=== PATIENT | female | born 1990 | race American Indian/Alaskan Native ===

== ENCOUNTER 2016-09-09 15:12 | Emergency (ER) | payer MEDICAID ==
[2016-09-09] MEDS ORDERED: ZOFRAN ODT PO ONE (18:06)
[2016-09-09] MEDS ORDERED: PHENERGAN/CODEINE 6.25-10 MG/5ML PO ONE (18:07)
--- NOTE | 2016-09-09 18:33 | XRay Report ---
FINAL REPORT PROCEDURE: XR CHEST ROUTINE 2V TECHNIQUE: PA and lateral chest radiographs were obtained. CPT 55656 HISTORY: cough COMPARISON: No prior studies are available for comparison. FINDINGS: Heart: Normal contour. Mediastinum/Vessels: Normal contour. Lungs/Pleural space: No infiltrate, effusion, or pneumothorax. Bony thorax: No acute osseous abnormality. Other: IMPRESSION: No radiographic evidence of acute abnormality.
[2016-09-09 18:54] LABS: Hematocrit 38.8 % (30.3-42.9); Hemoglobin 12.3 gm/dl (10.1-14.3); Mean Corpuscular HGB Conc 32 % (30-34); Mean Corpuscular Hemoglobin 27 pg (28-32); Mean Corpuscular Volume 85 fl (79-97); Platelet Count 219 K/mm3 (140-440); Red Blood Count 4.59 M/mm3 (3.65-5.03); Red Cell Distribution Width 14.9 % (13.2-15.2); White Blood Count 3.4 K/mm3 (4.5-11.0)
[2016-09-09 18:58] LABS: Anion Gap 17 mmol/L; Blood Urea Nitrogen 10 mg/dL (7-17); Calcium 8.7 mg/dL (8.4-10.2); Carbon Dioxide 26 mmol/L (22-30); Chloride 98.8 mmol/L (98-107); Glucose 89 mg/dL (65-100); Potassium 4.1 mmol/L (3.6-5.0); Sodium 138 mmol/L (137-145)
[2016-09-09 20:02] LABS: Basophils % (Manual) 0 % (0.0-1.8); Blastocytes % (Manual) 0 %; Diff Status Complete; Eosinophils % (Manual) 0 % (0.0-4.3); Hypochromasia 1+; Ovalocytes Few
[2016-09-09 20:34] VITALS: BP 103/68
--- NOTE | 2016-09-09 22:03 | Emergency Department Report ---
Entered by KANNAN MORA, acting as scribe for MENDY ADAN PA. <MENDY ADAN - Last Filed: 09/09/16 22:00> - General Chief Complaint: Upper Respiratory Infection Stated Complaint: FLU SYMPTOMS Time Seen by Provider: 09/09/16 18:00 Source: patient Mode of arrival: Ambulatory Limitations: No Limitations - History of Present Illness Initial Comments: 26 year old female with no significant PMHx presents to the ED with c/o flu like symptoms for about 5 days. Patient states that she went on a trip to [facility] last week and felt sick after her trip. Patient's symptoms secondary to subjective fever, intermittent sweats, nausea, productive cough with yellow sputum, and loss of appetite but denies vomiting, contact with sick people, SOB , and abdominal pain. Patient denies chance of and LMP was 2 weeks ago. patient is non ill appearing. patient is stable, neurologically intact and in no acute distress. MD Complaint: fever (subjective fever), cough (yellow sputum) Onset/Timin -: week(s) Severity: mild Severity scale (0 -10): 4 Quality: other Consistency: intermittent (nausea) Improves With: nothing Worsens With: activity Context: recent travel (Recent travel to [facility]) Associated Symptoms: fever (subjective), myalgias, diaphoresis, cough, nausea, right sweats, other (loss of appetite). denies: headache, sore throat, stiff neck, chest pain, shortness of breath, abdominal pain, vomiting, diarrhea, dysuria, rash, confusion, weight loss Treatments Prior to Arrival: none - Related Data Previous Rx's Medication Instructions Recorded Last Taken Type Acetaminophen/Codeine [Tylenol #3] 1 tab PO Q6H PRN #20 tab 07/04/15 Unknown Rx Cyclobenzaprine [Flexeril] 10 mg PO TID PRN #30 tablet 07/04/15 Unknown Rx Ibuprofen [Motrin] 600 mg PO Q8H PRN #40 tablet 07/04/15 Unknown Rx Ondansetron [Zofran Odt] 4 mg PO Q8HR #9 tab.rapdis 09/09/16 Unknown Rx guaiFENesin DM [Robitussin Dm] 5 ml PO BID #120 bottle 09/09/16 Unknown Rx Allergies Allergy/AdvReac Type Severity Reaction Status Date / Time No Known Allergies Allergy Verified 09/09/16 15:58 ED Review of Systems Comment: All other systems reviewed and negative Constitutional: chills, diaphoresis, fever (subjective). denies: weakness Eyes: denies: eye pain, eye discharge, vision change ENT: denies: ear pain, throat pain Respiratory: cough. denies: shortness of breath, wheezing Cardiovascular: denies: chest pain, palpitations Endocrine: other (decreased appetitie) Gastrointestinal: nausea. denies: abdominal pain, vomiting, diarrhea, constipation Genitourinary: denies: urgency, dysuria, discharge Musculoskeletal: denies: back pain, joint swelling, arthralgia Skin: denies: rash, lesions Neurological: denies: headache, weakness, numbness, paresthesias, confusion, abnormal gait, vertigo Psychiatric: denies: anxiety, depression Hematological/Lymphatic: denies: easy bleeding ED Past Medical Hx - Past Medical History Previous Medical History?: No - Surgical History Past Surgical History?: No - Social History Smoking Status: Never Smoker Substance Use Type: None - Medications Home Medications: Home Medications Medication Instructions Recorded Confirmed Last Taken Type Acetaminophen/Codeine [Tylenol #3] 1 tab PO Q6H PRN #20 tab 07/04/15 Unknown Rx Cyclobenzaprine [Flexeril] 10 mg PO TID PRN #30 tablet 07/04/15 Unknown Rx Ibuprofen [Motrin] 600 mg PO Q8H PRN #40 tablet 07/04/15 Unknown Rx Ondansetron [Zofran Odt] 4 mg PO Q8HR #9 tab.rapdis 09/09/16 Unknown Rx guaiFENesin DM [Robitussin Dm] 5 ml PO BID #120 bottle 09/09/16 Unknown Rx ED Physical Exam - General Limitations: No Limitations General appearance: alert, in no apparent distress - Head Head exam: Present: atraumatic, normocephalic - Eye Eye exam: Present: normal appearance, EOMI Pupils: Present: normal accommodation - ENT ENT exam: Present: normal exam, mucous membranes moist - Neck Neck exam: Present: normal inspection, full ROM. Absent: tenderness - Respiratory Respiratory exam: Present: normal lung sounds bilaterally. Absent: respiratory distress - Cardiovascular Cardiovascular Exam: Present: regular rate, normal rhythm. Absent: systolic murmur, diastolic murmur, rubs, gallop - GI/Abdominal GI/Abdominal exam: Present: soft, normal bowel sounds. Absent: distended, tenderness, guarding - Extremities Exam Extremities exam: Present: normal inspection, full ROM. Absent: tenderness - Back Exam Back exam: Present: normal inspection, full ROM. Absent: tenderness - Neurological Exam Neurological exam: Present: alert, oriented X3, normal gait - Psychiatric Psychiatric exam: Present: normal affect, normal mood - Skin Skin exam: Present: warm, dry, intact, normal color. Absent: rash ED Course Vital Signs 09/09/16 09/09/16 15:56 20:33 Temperature 98.9 F 98.8 F Pulse Rate 74 71 Respiratory 16 16 Rate Blood Pressure 120/80 Blood Pressure 103/68 [Right] O2 Sat by Pulse 100 98 Oximetry ED Medical Decision Making - Lab Data Result diagrams: 09/09/16 18:23 09/09/16 18:23 Labs 09/09/16 09/09/16 09/09/16 18:23 18:23 18:23 WBC 3.4 L RBC 4.59 Hgb 12.3 Hct 38.8 MCV 85 MCH 27 L MCHC 32 RDW 14.9 Plt Count 219 Lymph % (Auto) Telephone Lineworker Add Manual Diff Complete Total Counted 100 Seg Neutrophils % Telephone Lineworker Seg Neuts % (Manual) 23.0 L Band Neutrophils % 10.0 Lymphocytes % (Manual) 63.0 H Reactive Lymphs % (Man) 0 Monocytes % (Manual) 4.0 Eosinophils % (Manual) 0 Basophils % (Manual) 0 Metamyelocytes % 0 Myelocytes % 0 Promyelocytes % 0 Blast Cells % 0 Nucleated RBC % Not Reportable Seg Neutrophils # Man 0.8 L Band Neutrophils # 0.3 Lymphocytes # (Manual) 2.1 Abs React Lymphs (Man) 0.0 Monocytes # (Manual) 0.1 Eosinophils # (Manual) 0.0 Basophils # (Manual) 0.0 Metamyelocytes # 0.0 Myelocytes # 0.0 Promyelocytes # 0.0 Blast Cells # 0.0 WBC Morphology Not Reportable Hypersegmented Neuts Not Reportable Hyposegmented Neuts Not Reportable Hypogranular Neuts Not Reportable Smudge Cells Not Reportable Toxic Granulation Not Reportable Toxic Vacuolation Not Reportable Dohle Bodies Not Reportable Pelger-Huet Anomaly Not Reportable Fernando Rods Not Reportable Platelet Estimate Appears normal Clumped Platelets Not Reportable Plt Clumps, EDTA Not Reportable Large Platelets Not Reportable Giant Platelets Not Reportable Platelet Satelliting Not Reportable Plt Morphology Comment Not Reportable RBC Morphology Not Reportable Dimorphic RBCs Not Reportable Polychromasia Not Reportable Hypochromasia 1+ Poikilocytosis Not Reportable Anisocytosis Not Reportable Microcytosis Not Reportable Macrocytosis Not Reportable Spherocytes Not Reportable Pappenheimer Bodies Not Reportable Sickle Cells Not Reportable Target Cells Not Reportable Tear Drop Cells Not Reportable Ovalocytes Few Helmet Cells Not Reportable [place] Bodies Not Reportable [place] Rings Not Reportable Tristin Cells Not Reportable Bite Cells Not Reportable Crenated Cell Not Reportable Elliptocytes Not Reportable Acanthocytes (Spur) Not Reportable Rouleaux Not Reportable Hemoglobin C Crystals Not Reportable Schistocytes Not Reportable Malaria parasites Not Reportable Walter Bodies Not Reportable Hem Pathologist Commnt No Sodium 138 Potassium 4.1 Chloride 98.8 Carbon Dioxide 26 Anion Gap 17 BUN 10 Creatinine 0.8 Estimated GFR > 60 BUN/Creatinine Ratio 12.50 Glucose 89 Calcium 8.7 HCG, Qual Negative - Radiology Data Radiology results: report reviewed CXR NO acute abnormality. - Medical Decision Making 26 year old female presents to ED with flu like symptoms (subjective fever, productive cough, intermittent diaphoresis, nausea, decreased appetite.) patient denies pain. patient has negative imaging CXR and no increased WBC. patient has negative flu A&B results. patient has had blood cultures drawn due to out of country vacation recently. patient is stable, neurologically intact and in no acute distress. patient discharged with cough medicine and anti- emetics and will await blood culture results. ED Disposition Disposition: DC-01 TO HOME OR SELFCARE Is pt being admited?: No Does the pt Need Aspirin: No Condition: Stable Instructions: Viral Syndrome (ED) Prescriptions: guaiFENesin DM [Robitussin Dm] 5 ml PO BID #120 bottle Ondansetron [Zofran Odt] 4 mg PO Q8HR #9 tab.rapdis Referrals: PRIMARY CARE, [Primary Care Provider] - 3-5 Days Forms: Work/School Release Form(ED) <BUBBA GARZA - Last Filed: 09/16/16 00:42> ED Medical Decision Making - Lab Data Result diagrams: 09/09/16 18:23 09/09/16 18:23 This documentation as recorded by the MORGAN casillas PEARL,accurately reflects the service I personally performed and the decisions made by ,MENDY ADAN, PA.
== END 2016-09-09 20:33 | disposition home or self-care (01) ==
LOC: ED 15:12
DX: B34.9 Viral infection, unspecified (principal)
CPT/HCPCS: 36415; 71020; 80048; 84703; 85007; 85025; 87040; 87400; Q0162

== ENCOUNTER 2016-11-09 19:17 | Emergency (ER) | payer MEDICAID ==
[2016-11-09 20:34] LABS: Hematocrit 36.9 % (30.3-42.9); Hemoglobin 11.7 gm/dl (10.1-14.3); Mean Corpuscular HGB Conc 32 % (30-34); Mean Corpuscular Hemoglobin 27 pg (28-32); Mean Corpuscular Volume 86 fl (79-97); Platelet Count 187 K/mm3 (140-440); Red Blood Count 4.31 M/mm3 (3.65-5.03); Red Cell Distribution Width 15.2 % (13.2-15.2); White Blood Count 4.9 K/mm3 (4.5-11.0)
[2016-11-09 20:54] LABS: Anion Gap 19 mmol/L; BUN/Creatinine Ratio 18.33; Blood Urea Nitrogen 11 mg/dL (7-17); Calcium 9.1 mg/dL (8.4-10.2); Carbon Dioxide 22 mmol/L (22-30); Chloride 100.1 mmol/L (98-107); Glucose 105 mg/dL (65-100); Potassium 3.6 mmol/L (3.6-5.0); Sodium 137 mmol/L (137-145)
[2016-11-09 21:11] LABS: Bacteria,Urine 3+ /HPF (Negative); Bilirubin,Urine NEG (Negative); Blood,Urine NEG (Negative); Ketones,Urine TR mg/dL (Negative); Leukocyte Esterase,Urine NEG (Negative); Mucus,Urine 3+ /HPF; Nitrite,Urine NEG (Negative)
--- NOTE | 2016-11-09 22:21 | Ultrasound Report ---
FINAL REPORT EXAM: US OB TRANSVAGINAL HISTORY: pelvic pain with TECHNIQUE: Ultrasound obstetrical transvaginal with pulsed and color Doppler evaluation PRIORS: None. FINDINGS: There is gestational sac present within the uterus A pole is identified with crown-rump length of 1.39 centimeters corresponding to estimated gestational age of 7 weeks 5 days. Estimated date of delivery is June 23, 2017 cardiac activity is present with heart rate 163 beats per minute There is a small subchorionic hemorrhage 1.3 x 0.3 x 0.9 centimeters. Left ovary is 4.36 x 2.61 x 1.8 centimeters The left ovary is 5.01 x 3.44 x 4.10 centimeters. There is a right adnexal cyst measuring 3.7 x 3.3 x 2.9 centimeters likely corpus luteum IMPRESSION: Single live intrauterine gestation estimated at 7 weeks 5 days Small subchorionic hemorrhage Right ovarian cyst likely corpus luteum
--- NOTE | 2016-11-09 22:52 | Ultrasound Report ---
FINAL REPORT EXAM: US OB \T\lt; = 14 WEEKS FETUS HISTORY: pelvic pain with TECHNIQUE: Ultrasound obstetrical transabdominal PRIORS: None. FINDINGS: There is gestational sac present within the uterus A pole is identified with crown-rump length of 1.39 centimeters corresponding to estimated gestational age of 7 weeks 5 days. Estimated date of delivery is June 23, 2017 cardiac activity is present with heart rate 163 beats per minute There is a small subchorionic hemorrhage 1.3 x 0.3 x 0.9 centimeters. Left ovary is 4.36 x 2.61 x 1.8 centimeters The left ovary is 5.01 x 3.44 x 4.10 centimeters. There is a right adnexal cyst measuring 3.7 x 3.3 x 2.9 centimeters likely corpus luteum IMPRESSION: Single live intrauterine gestation estimated at 7 weeks 5 days Small subchorionic hemorrhage Right ovarian cyst likely corpus luteum
--- NOTE | 2016-11-10 11:49 | Emergency Department Report ---
HPI - General Chief Complaint: Urogenital-Female - HPI HPI: Patient with nausea vomiting, and positive test at home. Patient denies any fever, chills, night sweats. LMP about 2 months ago. ED Past Medical Hx - Past Medical History Previous Medical History?: No - Surgical History Past Surgical History?: No - Social History Smoking Status: Never Smoker Substance Use Type: None - Medications Home Medications: Home Medications Medication Instructions Recorded Confirmed Last Taken Type Acetaminophen/Codeine [Tylenol #3] 1 tab PO Q6H PRN #20 tab 07/04/15 Unknown Rx Cyclobenzaprine [Flexeril] 10 mg PO TID PRN #30 tablet 07/04/15 Unknown Rx Ibuprofen [Motrin] 600 mg PO Q8H PRN #40 tablet 07/04/15 Unknown Rx guaiFENesin DM [Robitussin Dm] 5 ml PO BID #120 bottle 09/09/16 Unknown Rx Ondansetron [Zofran ODT TAB] 4 mg PO Q8HR #9 tab.rapdis 11/10/16 Unknown Rx ED Review of Systems ROS: Stated complaint: NAUSEA Other details as noted in HPI Comment: All other systems reviewed and negative Endocrine: no symptoms reported Gastrointestinal: abdominal pain, nausea, vomiting Physical Exam - Physical Exam Vital Signs: Vital Signs 11/09/16 11/10/16 20:13 02:22 Temperature 99.4 F 98.9 F Pulse Rate 88 75 Respiratory 18 18 Rate Blood Pressure 130/75 115/69 O2 Sat by Pulse 100 100 Oximetry Physical Exam: Physical Exam: - General Limitations: No Limitations General appearance: alert, in no apparent distress, obese - Head Head exam: Present: atraumatic, normocephalic - Eye Eye exam: Present: normal appearance - ENT ENT exam: Present: mucous membranes moist - Neck Neck exam: Present: normal inspection - Respiratory Respiratory exam: Present: normal lung sounds bilaterally. Absent: respiratory distress - Cardiovascular Cardiovascular Exam: Present: normal rhythm, normal rate absent: systolic murmur , diastolic murmur, rubs, gallop - GI/Abdominal GI/Abdominal exam: Present: soft, normal bowel sounds : Patient refused - Extremities Exam Extremities exam: Present: normal inspection - Back Exam Back exam: Present: normal inspection - Neurological Exam Neurological exam: Present: alert, oriented X3 - Psychiatric Psychiatric exam: normal affect and mood - Skin Skin exam: Present: warm, dry, intact, normal color. Absent: rash ED Course Vital Signs 11/09/16 11/10/16 20:13 02:22 Temperature 99.4 F 98.9 F Pulse Rate 88 75 Respiratory 18 18 Rate Blood Pressure 130/75 115/69 O2 Sat by Pulse 100 100 Oximetry ED Medical Decision Making - Lab Data Result diagrams: 11/09/16 20:20 11/09/16 20:20 Critical care attestation.: If time is entered above; I have spent that time in minutes in the direct care of this critically ill patient, excluding procedure time. ED Disposition Clinical Impression: Qualifiers: Weeks of gestation: less than 8 weeks Qualified Code(s): Z3A.01 - Less than 8 weeks gestation of Subchorionic hemorrhage Qualifiers: Fetus number: single or unspecified fetus Trimester: first trimester Qualified Code(s): O41.8X10 - Other specified disorders of amniotic fluid and membranes, first trimester, not applicable or unspecified Disposition: DC-01 TO HOME OR SELFCARE Is pt being admited?: No Does the pt Need Aspirin: No Condition: Stable Instructions: Morning Sickness (ED), (ED) Prescriptions: Ondansetron [Zofran ODT TAB] 4 mg PO Q8HR #9 tab.rapdis Referrals: PRIMARY CARE, [Primary Care Provider] - 3-5 Days
[2016-11-10] MEDS ORDERED: NACL 0.9% 1000 ML 1,000 ML ONE (12:18)
[2016-11-10] MEDS: NACL 0.9% 1000 ML 1,000 ML IV ONE (12:55)
[2016-11-10 13:34] VITALS: BP 108/65
== END 2016-11-10 13:34 | disposition home or self-care (01) ==
LOC: ED 19:17
DX: O41.8X10 Other specified disorders of amniotic fluid and membranes, first trimester, not applicable or unspecified (principal); Z3A.01 Less than 8 weeks gestation of pregnancy
CPT/HCPCS: 36415; 76801; 76817; 80048; 81001; 84702; 85027; 86900; 86901; 96360; 99284; J7030

== ENCOUNTER 2017-06-23 10:21 | Inpatient (IN) | payer MEDICAID ==
[2017-06-23] MEDS ORDERED: NITRATEST PAPER MC ONE (11:00)
[2017-06-23] MEDS ORDERED: SUBLIMAZE IV PRN (12:09)
[2017-06-23] MEDS ORDERED: ePHEDrine SULFATE IV PRN ×2 (12:09→18:50)
[2017-06-23] MEDS ORDERED: BRETHINE SUB-Q PRN (12:09)
[2017-06-23] MEDS ORDERED: XYLOCAINE 2% INFILTRATI ONE (12:09)
--- NOTE | 2017-06-23 12:37 | History and Physical Report ---
History of Present Illness Date of examination: 06/23/17 (pt presents to Triage today with SROM, clear fluid) History of present illness: EDC Confirmation: 06/20/2017 Gestational Age: 12 3/7 weeks Past History : 5 Term Births: 3 Premature Births: 0 Living Children: 3 Para: 3 Mult. Births: 0 Prev : 0 Prev. attempt? 0 Aborta: 1 Elect. Ab: 0 Spont. Ab: 1 Ectopics: 0 # 1 Delivery date: 11/02/2005 Weeks Gestation: 41 labor: no Delivery type: Hours of labor: 16 Anesthesia type: epidural Delivery location: [facility] Sex: Male weight: 7-9 Name: Lukaszesidney Comments: Induction # 2 Delivery date: 2006 Weeks Gestation: ? Delivery type: SAB Comments: No D&C # 3 Delivery date: 09/26/2007 Weeks Gestation: 41 labor: no Delivery type: Hours of labor: 12 Anesthesia type: epidural Delivery location: [facility] Infant Sex: Female weight: 7-6 Name: julia # 4 Delivery date: 12/26/2008 Weeks Gestation: 41 labor: no Delivery type: Hours of labor: 8 Anesthesia type: epidural Delivery location: [place] Infant Sex: Female weight: 7-? Name: Tavo Past Medical History: Negative Past Medical History Past Surgical History: LEEP (03/2016) Family History Summary: Other family member - Has No Family History of Ovarvian Cancer - Entered On: 12/09/2016 Other family member - Has No Family History of Colon Cancer - Entered On: 2016 Other family member - Has No Family History of Breast Cancer - Entered On: 2016 Other family member - Has Family History of Hypertension - Entered On: 12/09/2016 Social History: Patient is single Warehouse Risk Factors: Smoked Tobacco Use: Never smoker Drug use: no HIV high-risk behavior: low risk Alcohol use: no Dietary Counseling: pn yes Past Medical History Surgery (Non-farmworker animal): LEEP (03/2016) Abnormal PAP: positive, s/p LEEP Social Hx: Patient is single Warehouse Infection History Hx of STD: chlamydia HIV Risk Eval: low risk Hepatitis B Risk Eval: low risk Personal hx. of genital herpes: no Partner hx. of genital herpes: no Genetic History Congenital Heart Defect: Mom: no Dad: no Lexis Disease: Mom: no Dad: no Thalassemia Mom: no Dad: no Neural Tube Defect Mom: no Dad: no Down's Syndrome Mom: no Dad: no Carlitos-Sachs Mom: no Dad: no Sickle Cell Disease/Trait Mom: no Dad: no Hemophilia Mom: no Dad: no Muscular Dystrophy Mom: no Dad: no Cystic Fibrosis Mom: no Dad: no Roni Chorea Mom: no Dad: no Mental Retardation Mom: no Dad: no Fragile X Mom: no Dad: no Other Genetic/Chromosomal Disorder Mom: no Dad: no Child w/other defect Mom: no Dad: no Active Medications (reviewed today): None Current Allergies (reviewed today): No known allergies Laboratory Results Date/Time Collected: 12/09/2016 Routine Urinalysis Protein: Negative Glucose: Negative Urine HCG: positive Review of Systems General Complains of fatigue. Denies fever, chills, sweats, anorexia, weakness, malaise, weight loss and sleep disorder. Complains of incontinence and pelvic pain. Denies vaginal discharge, dysuria, hematuria, urinary frequency, amenorrhea , menorrhagia, abnormal vaginal bleeding, genital sores, decreased libido, painful periods, painful sex, urinary urgency, hot flashes, vaginal dryness, vaginal itching and vaginal odor. CV Denies chest pains, palpitations, syncope, dyspnea on exertion, orthopnea, PND and peripheral edema. Resp Denies cough, dyspnea at rest, excessive sputum, hemoptysis, wheezing and pleurisy. GI Complains of nausea and diarrhea. Denies vomiting, constipation, change in bowel habits, abdominal pain, melena, hematochezia, jaundice, gas/bloating, indigestion/heartburn, dysphagia and odynophagia. Breast Complains of breast pain. Denies left breast lump, right breast lump, nipple discharge, bloody discharge from nipple, abnormal mammogram and breast enlargement. Psych Denies depression, anxiety, irritability and mood swings. PHYSICAL EXAM HEENT: normocephalic, no lesions or deformities Neck/Thyroid: supple, thyroid normal Skin no significant abnormal lesions or rashes .Tatoo(s) are present Chest: respiratory effort normal, clear to auscultation .Tatoo(s) are present Breasts: skin/areolae normal, no masses, no nipple discharge, no erythema/warmth /tenderness, and axillae normal. .Tatoo(s) are present CV: regular, normal S1-S2, no murmur, no rub, no gallop Abdomen: Obese, normal bowel sounds, soft, nontender, no HSM .Tatoo(s) are present Musculoskeletal: grossly normal ROM in joints, no joint tenderness or muscle weakness Neuro: no gross anomalities Extremities: no clubbing, cyanosis, or edema .Tatoo(s) are present RIGHT OF WAY AGENT Exams Vulva/Vagina: normal appearance, yellow discharge, lesions. No evidence of cystocele or rectocele. Cervix: No lesions; no cervical motion tenderness Uterus: enlarged 10 to 12 weeks in size Adnexae: no masses or tenderness Rectovaginal: exam defered Past History - Obstetrical History Expected Date of Delivery: 06/20/17 Actual Gestation: 40 Week(s) 3 Day(s) : 5 Para: 3 Hx # Term Pregnancies: 3 Spontaneous Abortions: 1 Number of Living Children: 3 Medications and Allergies Allergies Allergy/AdvReac Type Severity Reaction Status Date / Time No Known Allergies Allergy Verified 09/09/16 15:58 Home Medications Medication Instructions Recorded Confirmed Last Taken Type Famotidine 1 tab PO DAILY 06/23/17 06/23/17 Unknown History Active Meds: Active Medications Ephedrine Sulfate (Ephedrine Sulfate) 10 mg IV Q2M PRN PRN Reason: Hypotension Fentanyl (Sublimaze) 100 mcg IV Q2H PRN PRN Reason: Labor Pain Lactated Ringer's (Lactated Ringers) 1,000 mls @ 125 mls/hr IV DIRECT MITUL Oxytocin/Sodium Chloride (Pitocin/Ns 20 Unit/1000ml Drip) 20 units in 1,000 mls @ 125 mls/hr IV DIRECT MITUL Oxytocin/Sodium Chloride (Pitocin/Ns 30 Unit/500ml) 30 units in 500 mls @ 4 mls /hr IV Q30MIN MITUL; Protocol Mineral Oil (Mineral Oil) 30 ml PO QHS PRN PRN Reason: Constipation Terbutaline Sulfate (Brethine) 0.25 mg SUB-Q ONCE PRN PRN Reason: Hyperstimulation/Hypertonicity - Vital Signs Vital signs: Vital Signs Temp Pulse Resp BP Pulse Ox 97.9 F 86 18 129/89 100 06/23/17 12:07 06/23/17 12:07 06/23/17 12:07 06/23/17 12:07 06/23/17 12:07 Temp Pulse Resp BP Pulse Ox 97.9 F 86 18 129/89 100 06/23/17 12:07 06/23/17 12:07 06/23/17 12:07 06/23/17 12:07 06/23/17 12:07 - Physical Exam Breasts: Positive: deferred Cardiovascular: Regular rate, Normal S1, Normal S2 Lungs: Positive: Normal air movement Abdomen: Positive: normal appearance, soft, normal bowel sounds. Negative: distention, tenderness Genitourinary (Female): Positive: normal external genitalia Vulva: both: normal Vagina: Positive: normal moisture. Negative: discharge Cervix: Negative: lesion, discharge Uterus: Positive: normal size, normal contour Adnexa: both: normal Anus/Rectum: Positive: normal perianal skin, heme negative. Negative: rectal mass, hemorrhoids Extremities: Positive: normal Deep Tendon Reflex Grade: Normal +2 - Obstetrical FHR: category 1 Uterine Contraction Monitor Mode: External Cervical Dilatation: 2.5 (leaking clear fluid;+nitrazine) Cervical Effacement Percentage: 70 (exam per academic affairs coordinator) station: -2 Uterine Contraction Pattern: Irregular Uterine Tone Measurement Phase: Resting Uterine Contraction Intensity: Mild Results All other labs normal. Strep Gp B PRAMOD Negative HBsAg Screen Negative Negative *1 Rubella Antibodies, IgG 2.05 index Immune >0.99 *2 Non-immune <0.90 Equivocal 0.90 - 0.99 Immune >0.99 ABO Grouping AB *3 Rh Factor Positive *4 Please note: Prior records for this patient's ABO / Rh type are not available for additional verification. Antibody Screen Negative Negative *5 RPR Non Reactive Non Reactive *6 WBC 6.7 x10E3/uL 3.4-10.8 *7 RBC 4.11 x10E6/uL 3.77-5.28 *8 Hemoglobin 11.3 g/dL 11.1-15.9 *9 Hematocrit 34.4 % 34.0-46.6 *10 MCV 84 fL 79-97 *11 MCH 27.5 pg 26.6-33.0 *12 MCHC 32.8 g/dL 31.5-35.7 *13 RDW [H] 15.7 % 12.3-15.4 *14 Platelets 231 x10E3/uL 150-379 *15 Neutrophils 70 % Not Estab. *16 Lymphs 24 % Not Estab. *17 Monocytes 5 % Not Estab. *18 Eos 0 % Not Estab. *19 Basos 0 % Not Estab. *20 ! Immature Cells <No Reported Value> *21 Neutrophils (Absolute) 4.7 x10E3/uL 1.4-7.0 *22 Lymphs (Absolute) 1.6 x10E3/uL 0.7-3.1 *23 Monocytes(Absolute) 0.3 x10E3/uL 0.1-0.9 *24 Eos (Absolute) 0.0 x10E3/uL 0.0-0.4 *25 Baso (Absolute) 0.0 x10E3/uL 0.0-0.2 *26 ! Immature Granulocytes 1 % Not Estab. *27 ! Immature Grans (Abs) 0.0 x10E3/uL 0.0-0.1 *28 ! NRBC <No Reported Value> *29 Hematology Comments: <No Reported Value> *30 Tests: (2) AFP Tetra (978417) ! Results Report *31 ! Test Results: *Screen Negative* *32 ! Tests: (3) Cystic Fibrosis Profile (341685) ! CF, Screen Comment: *55 RESULTS: Negative for 32 mutations analyzed Tests: (4) HB Solu + Rflx [facility] (091316) Hemoglobin (Hgb) Solubility Negative Negative *58 Tests: (5) Panel 290265 ([id number]) HIV Screen 4th Generation wRfx Non Reactive Non Reactive *59 Tests: (6) HCV Ab w/Rflx to Verification (250997) ! HCV Ab <0.1 s/co ratio 0.0-0.9 *60 Tests: (7) Comment: ([id number]) ! Comment: SPRCS *61 Non reactive HCV antibody screen is consistent with no HCV infection, unless recent infection is suspected or other evidence exists to indicate HCV infection. Tests: (8) Urine Culture, Routine ([id number]) Urine Culture, Routine Final report *62 Tests: (9) Result ([id number]) ! Result 1 MUG *63 Mixed urogenital lynn 25,000-50,000 colony forming units per mL Assessment and Plan - Patient Problems (1) Spontaneous rupture of membranes Onset Date: ~06/23/17 Current Visit: Yes Status: Acute Plan to address problem: 26yo @ 40 weeks with SROM this AM. Fluid is clear on exam. GBS negative. Fetus does have a left renal pyelectasis. [facility] has recommended that this be reported to PEDS once baby has delivered. Mom's record previously faxed to NICU for review. RN caring for pt has also been made aware. All orders in EMR. aware of admission. Anticipate delivery.
[2017-06-23] MEDS ORDERED: PITOCin/NS 30 UNIT/500ML 30 UNITS/500 ML BAG IV SCH (13:00)
[2017-06-23 13:25] LABS: Hematocrit 33.1 % (30.3-42.9); Hemoglobin 10.2 gm/dl (10.1-14.3); Mean Corpuscular HGB Conc 31 % (30-34); Mean Corpuscular Volume 79 fl (79-97); Platelet Count 189 K/mm3 (140-440); Red Blood Count 4.19 M/mm3 (3.65-5.03); Red Cell Distribution Width 18.6 % (13.2-15.2)
[2017-06-23] MEDS: LACTATED RINGERS 1,000 ML IV SCH ×3 (13:26→21:35)
[2017-06-23 13:31] LABS: Mean Corpuscular Hemoglobin 24 pg (28-32)
--- NOTE | 2017-06-23 15:59 | Event Note ---
Date: 06/23/17 Via phone RN reports reactive tracing/no change in cervix/pitocin at 12 mu/min/ patient c/o pain Will allow epidural/continue pitocin/will place internal monitors
--- NOTE | 2017-06-23 18:23 | Progress Note ---
Assessment and Plan - Patient Problems (1) Thin meconium stained amniotic fluid Current Visit: Yes Status: Acute Plan to address problem: Patient with little progress. Artificial rupture of membranes revealed thin meconium. Intrauterine pressure catheter and scalp electrode placed. Epidural has not been place as of yet awaiting placement by anesthesia. We'll continue Pitocin titration. Will now monitor for adequate contractions. Continue expectant management and operative delivery if indicated Subjective - Subjective Date of service: 06/23/17 Patient reports: movement normal, contractions, no new complaints Objective - Vital Signs Vital Signs: Vital Signs - 12hr 06/23/17 12:07 Temperature 97.9 F Pulse Rate 86 Respiratory 18 Rate Blood Pressure 129/89 [Left] O2 Sat by Pulse 100 Oximetry - Exam FHR: category 2 Cervical Dilatation: 3 (Forebag felt and ruptured) Cervical Effacement Percentage: 50 station: -3 Uterine Contraction Pattern: Regular Uterine Contraction Intensity: Moderate Extremities: edema - Labs Labs: Abnormal Labs 06/23/17 12:33 WBC 11.5 H MCH 24 L RDW 18.6 H Laboratory Results - last 24 hr 06/23/17 06/23/17 12:33 12:33 WBC 11.5 H RBC 4.19 Hgb 10.2 Hct 33.1 MCV 79 MCH 24 L MCHC 31 RDW 18.6 H Plt Count 189 Blood Type AB POSITIVE Antibody Screen Negative
[2017-06-23] MEDS ORDERED: NARCAN 2 MG/2 ML IV PRN (18:50)
[2017-06-23] MEDS ORDERED: fentaNYL-BUPIV 2 MCG/ML-0.125% 200 MCG/100 ML BAG EPIDURAL SCH ×3 (19:00→20:00)
[2017-06-23] MEDS ORDERED: STADOL IV PRN (21:27)
[2017-06-23] MEDS ORDERED: MINERAL OIL PO PRN (22:00)
[2017-06-23] MEDS: PITOCin/NS 20 UNIT/1000ML DRIP 20 UNITS/1,000 ML BAG IV SCH ×2 (22:12→23:10)
--- NOTE | 2017-06-23 22:28 | Procedure Note ---
OB Delivery Note - Delivery Date of Delivery: 06/23/17 Surgeon: COLIN JAMESON Estimated blood loss: 300cc - Vaginal Delivery position: OA Intrapartum events: meconium Delivery augmentation: pitocin Delivery monitor: external FHT, external uterine, internal FHT, internal uterine Route of delivery: Delivery placenta: spontaneous Episiotomy: none Delivery laceration: none Anesthesia: intravenous, epidural Delivery comments: NICU present at delivery - A at 1 minute: 8 at 5 minutes: 9 Infant Gender: Male
[2017-06-24] MEDS ORDERED: MILK OF MAGNESIA PO PRN (00:03)
[2017-06-24] MEDS ORDERED: PHENERGAN PO PRN (00:03)
[2017-06-24] MEDS ORDERED: DULCOLAX PR PRN (00:03)
[2017-06-24] MEDS ORDERED: TUCKS PAD TP PRN (00:03)
[2017-06-24] MEDS ORDERED: SODIUM CHLORIDE FLUSH SYRINGE 10 ML IV NR (00:03)
[2017-06-24] MEDS ORDERED: LANSINOH TP PRN (00:03)
[2017-06-24] MEDS ORDERED: TYLENOL PO PRN (00:03)
[2017-06-24] MEDS ORDERED: BENADRYL PO PRN (00:03)
[2017-06-24] MEDS ORDERED: NORCO 5/325 PO PRN (00:03)
[2017-06-24] MEDS: MOTRIN PO SCH ×5 (00:43→23:28)
--- NOTE | 2017-06-24 08:14 | Progress Note ---
Assessment and Plan Patient doing well s/p <12h, VSSAF, H&H to be drawn @ 1030. Lochia scant. Patient requests d/c home first thing tomorrow morning. if H&H stable, will do d /c for tomorrow. - Patient Problems (1) (normal spontaneous vaginal delivery) Current Visit: Yes Status: Acute Subjective - Subjective Date of service: 06/24/17 Principal diagnosis: poatpartum day#1 s/p Patient reports: appetite normal, voiding normally, pain well controlled, ambulating normally, no dizzy ambulation, no nauseated [place]: doing well, bottle feeding Objective - Vital Signs Latest vital signs: Vital Signs Temp Pulse Resp BP Pulse Ox 06/24/17 03:40 98.4 F 94 H 18 119/68 06/24/17 00:05 97.5 F L 83 18 130/77 06/23/17 23:27 80 18 137/81 06/23/17 23:12 85 18 137/79 06/23/17 23:09 98 F 06/23/17 22:57 94 H 18 140/83 06/23/17 12:07 97.9 F 86 18 129/89 100 Intake and Output 06/23/17 06/24/17 06/24/17 23:59 07:59 15:59 Intake Total 1139.583 480 Output Total 1805 Balance 1139.583 -1325 Intake: IV 1139.583 Lactated Ringers 1,000 ml 1018.750 @ 125 mls/hr IV DIRECT MITUL Rx#:[id number] PITOCin/NS 20 UNIT/1000ML 120.833 DRIP 20 units In 1,000 ml @ 125 mls/hr IV DIRECT MITUL Rx#:[id number] Intake, Free Water 480 Output: Urine 1800 Void 1800 Emesis 5 Other: Total, Output Amount 800 # Voids Void 1 Estimated Blood Loss 300 - Exam Breasts: Present: normal Cardiovascular: Present: Regular rate Lungs: Present: Clear to auscultation, Normal air movement Abdomen: Present: normal appearance, soft Vulva: both: normal Uterus: Present: normal, firm, fundal height at umbilicus Extremities: Present: normal Deep Tendon Reflex Grade: Normal +2 - Labs Labs: Abnormal lab results 04/19/18 Range/Units 12:33 WBC 11.5 H (4.5-11.0) K/mm3 MCH 24 L (28-32) pg RDW 18.6 H (13.2-15.2) %
[2017-06-24] MEDS ORDERED: PRENATAL VITAMIN PO SCH (10:00)
[2017-06-24] MEDS ORDERED: PEPCID PO SCH (10:00)
[2017-06-24 11:43] LABS: Hematocrit 27.4 % (30.3-42.9); Hemoglobin 8.4 gm/dl (10.1-14.3)
--- NOTE | 2017-06-24 12:08 | Discharge Summary ---
Providers - Providers Date of Admission: 06/23/17 13:02 Date of discharge: 06/25/17 (desires d/c home CL[facility]ISSA) Attending physician: COLIN JAMESON 06/24/17 00:03 Consult to Teacher [employer] [CONS] Routine Reason For Exam: assistance with , SNS Primary care physician: COLIN JAMESON Hospitalization Reason for admission: active labor, rupture of membranes Delivery: Episiotomy: none Laceration: none Other procedures: none complications: none Discharge diagnosis: IUP at term delivered [place] baby: male Hospital course: uncomplicated vaginal delivery Condition at discharge: Good Disposition: DC-01 TO HOME OR SELFCARE - Discharge Diagnoses (1) (normal spontaneous vaginal delivery) Status: Acute Plan - Discharge Medications Prescriptions: Ibuprofen [Motrin 800 MG tab] 800 mg PO Q8HR PRN #30 tablet PRN Reason: Pain Lidocain2.5%/Prilocai2.5% [Emla] 5 gm TP ONCE PRN #1 tube PRN Reason: Pain - Provider Discharge Summary Activity: routine, no sex for 6 weeks, no heavy lifting 4 weeks, no strenuous exercise Diet: routine Instructions: routine Additional instructions: [] Smoking cessation referral if applicable(refer to patient education folder for contact #) [] Refer to [facility]'s [facility] Booklet Call your doctor immediately for: * Fever > 100.5 * Heavy vaginal bleeding ( >1 pad per hour) * Severe persistent headache * Shortness of breath * Reddened, hot, painful area to leg or breast * Drainage or odor from incision. * Keep incision clean and dry at all times and follow doctor's instructions regarding bathing/showering - Follow up plan Follow up: COLIN JAMESON MD [Primary Care Provider] - 7 Days (Congratulations! Please call [phone] to schedule your son's circumcision in 1 week and your visit in 4 weeks. Bring EMLA cream to your son's visit and await teaching. Call for any questions or concerns.)
[2017-06-24] MEDS: COLACE PO SCH ×2 (12:16→21:40)
[2017-06-25] MEDS: MOTRIN PO SCH (05:39)
[2017-06-25 09:55] VITALS: BP 138/80
== END 2017-06-25 13:45 | disposition home or self-care (01) | DRG 775 ==
LOC: TRG 10:21 → LD 13:02 → OB 23:36
PROVIDERS: ADMIT Obstetrics & Gynecology; ATTEND Obstetrics & Gynecology
PROC: 10E0XZZ Delivery of Products of Conception, External Approach (ICD-10-PCS; principal; 2017-06-23)
PROC: 10907ZC Drainage of Amniotic Fluid, Therapeutic from Products of Conception, Via Natural or Artificial Opening (ICD-10-PCS; 2017-06-23)
PROC: 10H07YZ Insertion of Other Device into Products of Conception, Via Natural or Artificial Opening (ICD-10-PCS; 2017-06-23)
PROC: 3E0R3BZ Introduction of Anesthetic Agent into Spinal Canal, Percutaneous Approach (ICD-10-PCS; 2017-06-23)
PROC: 00HU33Z Insertion of Infusion Device into Spinal Canal, Percutaneous Approach (ICD-10-PCS; 2017-06-23)
DX: O77.0 Labor and delivery complicated by meconium in amniotic fluid (principal); Z3A.40 40 weeks gestation of pregnancy; Z37.0 Single live birth; O35.8XX0 Maternal care for other (suspected) fetal abnormality and damage, not applicable or unspecified
CPT/HCPCS: 36415; 85014; 85018; 85027; 86592; 86850; 86900; 86901; 99211; G0463; J2590; J3010; J7120